=== PATIENT | female | born 1940 | race Two or more races ===

== ENCOUNTER 2017-06-28 13:24 | Outpatient (CLI) | payer OTHER ==
[~2017-06-28 13:24] MED LIST: DOLOGESIC CAPLE1 TAB PO; ECOTRIN81 MG; INTESTINEX680 MG PO; LEVOXYL25 MCG PO; LIPITOR20 MG; LISINOPRIL2.5 MG; SYNTHROID50 MCG; TESSALON PERLE100 MG PO; VITAMIN D32000 UNI1; ZYRTEC10 M3 PO
== END 2017-06-28 13:30 | disposition home or self-care (01) ==
LOC: LAB 13:24
DX: N30.00 Acute cystitis without hematuria (principal)

== ENCOUNTER 2017-07-09 11:55 | Outpatient (CLI) | payer OTHER | END 2017-07-09 12:11 | disposition home or self-care (01) | LOC: LAB 11:55 | DX: D50.8 Other iron deficiency anemias (principal); E03.8 Other specified hypothyroidism; E78.2 Mixed hyperlipidemia; I11.9 Hypertensive heart disease without heart failure; E56.8 Deficiency of other vitamins; N39.0 Urinary tract infection, site not specified; Z12.11 Encounter for screening for malignant neoplasm of colon; R19.5 Other fecal abnormalities; E55.9 Vitamin D deficiency, unspecified; N19 Unspecified kidney failure; R80.8 Other proteinuria; R82.79 Other abnormal findings on microbiological examination of urine ==

== ENCOUNTER 2017-07-09 11:57 | Outpatient (CLI) | payer OTHER | END 2017-07-09 12:11 | disposition home or self-care (01) | LOC: RAD 11:57 | DX: R05 Cough (principal) ==

== ENCOUNTER → 2017-07-13 15:25 | Outpatient (CLI) | payer OTHER | END | disposition home or self-care (01) | LOC: LAB 15:25 | DX: D50.9 Iron deficiency anemia, unspecified (principal); E03.8 Other specified hypothyroidism; E78.2 Mixed hyperlipidemia; I11.9 Hypertensive heart disease without heart failure; E56.8 Deficiency of other vitamins; N39.0 Urinary tract infection, site not specified; Z12.11 Encounter for screening for malignant neoplasm of colon; R19.5 Other fecal abnormalities; E55.9 Vitamin D deficiency, unspecified; N19 Unspecified kidney failure; R80.8 Other proteinuria ==

== ENCOUNTER 2017-11-22 16:30 | Outpatient (CLI) | payer OTHER | END 2017-11-22 16:50 | disposition home or self-care (01) | LOC: LAB 16:30 | DX: N30.00 Acute cystitis without hematuria (principal); R82.79 Other abnormal findings on microbiological examination of urine ==

== ENCOUNTER → 2018-03-28 12:19 | Outpatient (CLI) | payer OTHER | END | disposition home or self-care (01) | LOC: LAB 12:19 | DX: N30.00 Acute cystitis without hematuria (principal); D50.9 Iron deficiency anemia, unspecified; E03.8 Other specified hypothyroidism; E78.2 Mixed hyperlipidemia; I11.9 Hypertensive heart disease without heart failure; E56.8 Deficiency of other vitamins; N39.0 Urinary tract infection, site not specified; Z12.11 Encounter for screening for malignant neoplasm of colon; R19.5 Other fecal abnormalities; E55.9 Vitamin D deficiency, unspecified; N19 Unspecified kidney failure; E11.9 Type 2 diabetes mellitus without complications; R80.8 Other proteinuria; K92.1 Melena; R82.79 Other abnormal findings on microbiological examination of urine ==

== ENCOUNTER 2018-04-01 10:53 | Outpatient (CLI) | payer OTHER | END 2018-04-01 11:06 | disposition home or self-care (01) | LOC: RAD 10:53 | DX: Z12.31 Encounter for screening mammogram for malignant neoplasm of breast (principal); Z87.898 Personal history of other specified conditions; C50.911 Malignant neoplasm of unspecified site of right female breast; C50.912 Malignant neoplasm of unspecified site of left female breast; M54.5 Low back pain; I11.9 Hypertensive heart disease without heart failure; R06.02 Shortness of breath ==

== ENCOUNTER → 2018-04-01 13:01 | Outpatient (CLI) | payer OTHER | END | disposition home or self-care (01) | LOC: LAB 13:01 | DX: D51.9 Vitamin B12 deficiency anemia, unspecified (principal); E55.9 Vitamin D deficiency, unspecified ==

== ENCOUNTER 2018-04-02 11:37 | Outpatient (CLI) | payer OTHER | END 2018-04-02 12:00 | disposition home or self-care (01) | LOC: NUCLEAR 11:37 | DX: I73.9 Peripheral vascular disease, unspecified (principal); I87.2 Venous insufficiency (chronic) (peripheral) ==

== ENCOUNTER 2018-04-15 14:50 | Outpatient (CLI) | payer OTHER | END 2018-04-15 15:08 | disposition home or self-care (01) | LOC: NUCLEAR 14:50 | DX: M15.0 Primary generalized (osteo)arthritis (principal); M81.0 Age-related osteoporosis without current pathological fracture ==

== ENCOUNTER 2018-05-17 13:35 | Outpatient (CLI) | payer OTHER | END 2018-05-17 13:50 | disposition home or self-care (01) | LOC: LAB 13:35 | DX: N30.00 Acute cystitis without hematuria (principal); R82.79 Other abnormal findings on microbiological examination of urine ==

== ENCOUNTER 2018-05-20 10:42 | Outpatient (CLI) | payer OTHER | END 2018-05-20 15:48 | disposition home or self-care (01) | LOC: TOM 10:42 | DX: N39.0 Urinary tract infection, site not specified (principal) ==

== ENCOUNTER → 2019-05-12 | Outpatient (CLI) | payer OTHER | END | disposition home or self-care (01) | LOC: RAD 13:51 | DX: M79.675 Pain in left toe(s) (principal); M76.62 Achilles tendinitis, left leg ==

== ENCOUNTER 2019-05-29 14:10 | Outpatient (CLI) | payer OTHER | END 2019-05-29 15:20 | disposition home or self-care (01) | LOC: MRI 14:10 | DX: M54.5 Low back pain (principal); M54.16 Radiculopathy, lumbar region | CPT/HCPCS: 72148 ==

== ENCOUNTER → 2019-07-17 | Outpatient (CLI) | payer OTHER | END | disposition home or self-care (01) | LOC: RAD 14:58 | DX: M19.072 Primary osteoarthritis, left ankle and foot (principal) | CPT/HCPCS: 73718 ==

== ENCOUNTER 2019-08-15 09:00 | Outpatient (CLI) | payer OTHER | END 2019-08-15 09:49 | disposition home or self-care (01) | LOC: NUCLEAR 09:00 | DX: I73.9 Peripheral vascular disease, unspecified (principal); I87.2 Venous insufficiency (chronic) (peripheral) ==

== ENCOUNTER → 2019-08-15 | Emergency (ER) | payer OTHER ==
[~2019-08-15] VITALS: Ht 165.1 cm; Wt 75.3 kg
[~2019-08-15] MED LIST changes: +DAFLONEX-XL 11300 MG PO; +GRALISE600 MG PO
== END | disposition left against medical advice (07) ==
LOC: ER 07:54
DX: Z53.20 Procedure and treatment not carried out because of patient's decision for unspecified reasons (principal)

== ENCOUNTER 2019-08-18 14:16 | Outpatient (CLI) | payer OTHER | END 2019-08-18 14:21 | disposition home or self-care (01) | LOC: RAD 14:16 | DX: M17.12 Unilateral primary osteoarthritis, left knee (principal) ==

== ENCOUNTER 2019-08-18 14:33 | Outpatient (CLI) | payer OTHER | END 2019-08-18 14:53 | disposition home or self-care (01) | LOC: NUCLEAR 14:33 | DX: I73.9 Peripheral vascular disease, unspecified (principal) ==

== ENCOUNTER 2020-05-04 16:02 | Outpatient (CLI) | payer OTHER | END 2020-05-04 16:09 | disposition home or self-care (01) | LOC: LAB 16:02 | PROVIDERS: ATTEND Urology | DX: N30.00 Acute cystitis without hematuria (principal); B96.29 Other Escherichia coli [E. coli] as the cause of diseases classified elsewhere ==

== ENCOUNTER 2020-08-23 11:54 | Outpatient (CLI) | payer OTHER | END 2020-08-23 12:23 | disposition home or self-care (01) | LOC: LAB 11:54 | PROVIDERS: ATTEND Internal Medicine Cardiovascular Disease | DX: I10 Essential (primary) hypertension (principal); E11.9 Type 2 diabetes mellitus without complications; E03.8 Other specified hypothyroidism; E78.2 Mixed hyperlipidemia; E55.9 Vitamin D deficiency, unspecified ==

== ENCOUNTER 2020-08-25 14:56 | Outpatient (CLI) | payer OTHER | END 2020-08-25 14:59 | disposition home or self-care (01) | LOC: LAB 14:56 | PROVIDERS: ATTEND Internal Medicine Cardiovascular Disease | DX: I10 Essential (primary) hypertension (principal); E11.9 Type 2 diabetes mellitus without complications; E03.8 Other specified hypothyroidism; E78.2 Mixed hyperlipidemia; E55.9 Vitamin D deficiency, unspecified; N39.0 Urinary tract infection, site not specified; Z12.11 Encounter for screening for malignant neoplasm of colon ==

== ENCOUNTER 2020-10-13 14:32 | Outpatient (CLI) | payer OTHER | END 2020-10-13 14:50 | disposition home or self-care (01) | LOC: MAMO-SONO 14:32 | PROVIDERS: ATTEND Obstetrics & Gynecology | DX: Z12.31 Encounter for screening mammogram for malignant neoplasm of breast (principal); N60.11 Diffuse cystic mastopathy of right breast ==

== ENCOUNTER → 2021-02-10 11:47 | Outpatient (CLI) | payer OTHER | END | disposition home or self-care (01) | LOC: LAB 11:47 | PROVIDERS: ATTEND Internal Medicine Cardiovascular Disease | DX: I10 Essential (primary) hypertension (principal); E11.9 Type 2 diabetes mellitus without complications; E03.8 Other specified hypothyroidism; E78.2 Mixed hyperlipidemia; E55.9 Vitamin D deficiency, unspecified; M81.0 Age-related osteoporosis without current pathological fracture ==

== ENCOUNTER 2021-02-18 14:10 | Outpatient (CLI) | payer OTHER | END 2021-02-18 14:16 | disposition home or self-care (01) | LOC: NUCLEAR 14:10 | PROVIDERS: ATTEND Internal Medicine Cardiovascular Disease | DX: M81.0 Age-related osteoporosis without current pathological fracture (principal); E55.9 Vitamin D deficiency, unspecified ==

== ENCOUNTER → 2021-11-01 13:33 | Outpatient (CLI) | payer OTHER | END | disposition home or self-care (01) | LOC: LAB 13:33 | PROVIDERS: ATTEND Internal Medicine Cardiovascular Disease | DX: E03.9 Hypothyroidism, unspecified (principal); I10 Essential (primary) hypertension; E11.9 Type 2 diabetes mellitus without complications; Z12.11 Encounter for screening for malignant neoplasm of colon; E55.9 Vitamin D deficiency, unspecified ==

== ENCOUNTER → 2021-11-04 12:45 | Outpatient (CLI) | payer OTHER | END | disposition home or self-care (01) | LOC: LAB 12:45 | PROVIDERS: ATTEND Internal Medicine Cardiovascular Disease | DX: Z12.11 Encounter for screening for malignant neoplasm of colon (principal); I10 Essential (primary) hypertension; E11.9 Type 2 diabetes mellitus without complications; E55.9 Vitamin D deficiency, unspecified; E03.9 Hypothyroidism, unspecified ==

== ENCOUNTER 2022-07-31 15:23 | Outpatient (CLI) | payer OTHER | END 2022-07-31 15:30 | disposition home or self-care (01) | LOC: RAD 15:23 | PROVIDERS: ATTEND Internal Medicine Cardiovascular Disease | DX: M12.9 Arthropathy, unspecified (principal) ==

== ENCOUNTER 2022-08-02 12:28 | Outpatient (CLI) | payer OTHER | END 2022-08-02 12:41 | disposition home or self-care (01) | LOC: MAMO-SONO 12:28 | PROVIDERS: ATTEND Obstetrics & Gynecology | DX: N60.11 Diffuse cystic mastopathy of right breast (principal) ==

== ENCOUNTER 2022-08-04 14:06 | Outpatient (CLI) | payer OTHER | END 2022-08-04 14:08 | disposition home or self-care (01) | LOC: NUCLEAR 14:06 | PROVIDERS: ATTEND Obstetrics & Gynecology | DX: M81.0 Age-related osteoporosis without current pathological fracture (principal) ==

== ENCOUNTER 2022-08-29 12:17 | Outpatient (CLI) | payer OTHER | END 2022-08-29 12:25 | disposition home or self-care (01) | LOC: MRI 12:17 | PROVIDERS: ATTEND Physical Medicine & Rehabilitation | DX: M54.2 Cervicalgia (principal); G81.91 Hemiplegia, unspecified affecting right dominant side | CPT/HCPCS: 70551; 72141 ==

== ENCOUNTER 2022-10-12 13:45 | Outpatient (CLI) | payer OTHER | END 2022-10-12 13:49 | disposition home or self-care (01) | LOC: LAB 13:45 | DX: R01.1 Cardiac murmur, unspecified (principal); R05.2 Subacute cough; J06.9 Acute upper respiratory infection, unspecified; N39.0 Urinary tract infection, site not specified ==

== ENCOUNTER 2022-11-29 14:17 | Outpatient (CLI) | payer OTHER | END 2022-11-29 14:23 | disposition home or self-care (01) | LOC: RAD 14:17 | PROVIDERS: ATTEND Family Medicine | DX: R05.2 Subacute cough (principal); R06.02 Shortness of breath ==

== ENCOUNTER 2022-12-28 15:41 | Outpatient (CLI) | payer OTHER | END 2022-12-28 15:49 | disposition home or self-care (01) | LOC: RAD 15:41 | PROVIDERS: ATTEND Internal Medicine Cardiovascular Disease | DX: M12.9 Arthropathy, unspecified (principal); M46.47 Discitis, unspecified, lumbosacral region ==

== ENCOUNTER 2024-08-01 12:07 | Outpatient (CLI) | payer OTHER | END 2024-08-01 12:21 | disposition home or self-care (01) | LOC: RAD 12:07 | PROVIDERS: ATTEND Family Medicine | DX: M54.2 Cervicalgia (principal) ==